=== PATIENT | female | born 1970 | race Caucasian/White ===

== ENCOUNTER 2016-07-24 16:34 | Emergency (ER) | payer SELFPAY ==
[2016-07-24 16:38] VITALS: BP 118/84; PULSE 63; TEMP 98.2; BMI 32.3
[2016-07-24] MEDS ORDERED: IBUPROFEN 600 MG TABLET (FP) PO ONE ×2 (17:40→17:44)
--- NOTE | 2016-07-24 17:42 | PDOC ---
History of Present Illness - General Chief Complaint: Injury Stated Complaint: INJURY Time Seen by Provider: 07/24/16 16:59 History Source: Patient Exam Limitations: No Limitations - History of Present Illness Initial Comments: 07/24/16 18:22 My Chief Complaint: stepped on nail right foot History of Present Illness; patient is a 46 year old male with no significant medical history here today after stepping on a nail rt. foot yesterday work boots on. He reports that area is tender to touch. Patient reports that his tetanus is up-to-date last updated 3 years ago. He reports that he was able to remove the nail from his foot. Patient reports that area is tender to when putting weight on his foot. Patient did not take anything for pain today. He denies any numbness of his right foot. 07/24/16 18:24 07/24/16 18:25 Occurred: reports: yesterday Severity: reports: mild Pain Location: reports: lower extremity (rt. foot) Method of Injury: Yes: other (stepped on a dirt nail at work ) Modifying Factors: improves with: None Loss of Consciousness: no loss of consciousness Associated Symptoms (Fall): other (tenderness rt. lateral heel) Past History - Past Medical History Allergies/Adverse Reactions: Allergies Allergy/AdvReac Type Severity Reaction Status Date / Time No Known Allergies Allergy Verified 07/24/16 16:36 Home Medications: Ambulatory Orders Cephalexin Monohydrate [Keflex -] 500 mg PO Q8H #20 capsule 07/24/16 - Psycho/Social/Smoking Cessation Hx Anxiety: No Suicidal Ideation: No Smoking History: Never smoked Have you smoked in the past 12 months: No Information on smoking cessation initiated: No Hx Alcohol Use: No Drug/Substance Use Hx: No Substance Use Type: None Review of Systems - Review of Systems Able to Perform ROS?: Yes Constitutional: No: Symptoms Reported HEENTM: No: Symptoms Reported Respiratory: No: Symptoms reported Cardiac (ROS): No: Symptoms Reported ABD/GI: No: Symptoms Reported : No: Symptoms Reported Integumentary: Yes: Other (rt. lateral heel puncture wound ) Neurological: No: Symptoms reported *Physical Exam - Vital Signs Last Vital Signs Temp Pulse Resp BP Pulse Ox 98.2 F 63 18 118/84 100 07/24/16 16:36 07/24/16 16:36 07/24/16 16:36 07/24/16 16:36 07/24/16 16:36 - Physical Exam General Appearance: Yes: Appropriately Dressed Vascular Pulses: Dorsalis-Pedis (R): 4+ Extremity: positive: Normal Capillary Refill, Normal Range of Motion (rt. foot ) , Tender (rt. lateral heel), Other (punctate erythematous nellie rt. lateral heel with minimal erythema lateral heel) Integumentary: positive: Other (punctate nellie rt. lateral heel, with surrounding erythema laterally ) Neurologic: positive: Alert, Normal Response Medical Decision Making - Medical Decision Making 07/24/16 18:22 07/24/16 18:26 patient is a 46 year old male with no significant medical history here today after stepping on a nail rt. foot yesterday work boots on. He reports that area is tender to touch. Patient reports that his tetanus is up-to-date last updated 3 years ago. He reports that he was able to remove the nail from his foot. Patient reports that area is tender to when putting weight on his foot. Patient did not take anything for pain today. He denies any numbness of his right foot. Right foot puncture wound PLAN: ibuprofen 600 mg po now keflex 500 mg po now than every 8 hrs for 7 days xray right foot no foreign body noted 07/24/16 18:34 *DC/Admit/Observation/Transfer Diagnosis at time of Disposition: Puncture wound of foot, right Qualifiers: Encounter type: initial encounter Qualified Code(s): S91.331A - Puncture wound without foreign body, right foot, initial encounter - Discharge Dispostion Disposition: HOME Condition at time of disposition: Stable - Prescriptions Prescriptions: Cephalexin Monohydrate [Keflex -] 500 mg PO Q8H #20 capsule
[2016-07-24] MEDS ORDERED: CEPHALEXIN MONOHYDRATE 500 MG CAPSULE (UD) PO ONE (17:47)
[2016-07-24] MEDS ORDERED: CEPHALEXIN MONOHYDRATE 500 MG CAPSULE (UD) ONE (17:57)
== END 2016-07-24 18:53 | disposition home or self-care (01) ==
LOC: JERFT 16:34
DX: S91.331A Puncture wound without foreign body, right foot, initial encounter (principal); W22.8XXA Striking against or struck by other objects, initial encounter; Y99.0 Civilian activity done for income or pay; Y93.89 Activity, other specified; Y92.9 Unspecified place or not applicable
CPT/HCPCS: 73630-TC-RT; 99281-25

== ENCOUNTER 2016-12-01 18:41 | Emergency (ER) | payer SELFPAY ==
[2016-12-01 18:46] VITALS: BP 128/68; PULSE 65; TEMP 98.1; BMI 32.0
--- NOTE | 2016-12-01 19:22 | PDOC ---
History of Present Illness - General Chief Complaint: Injury Stated Complaint: KNEE INJURY Time Seen by Provider: 12/01/16 19:19 History Source: Patient Exam Limitations: No Limitations - History of Present Illness Initial Comments: 12/01/16 20:02 Evaluation of right knee pain. States at work today tripped and fell landing on right knee with a twisting and contusion. Complaints of pain and swelling. Has not taken any medication for pain pain relief, has not provided any therapeutic treatment. Occurred: reports: yesterday Severity: reports: mild, moderate Pain Location: reports: lower extremity (right knee ) Method of Injury: Yes: fall Modifying Factors: improves with: None Associated Symptoms (Fall): denies symptoms Past History - Travel Traveled outside of the country in the last 30 days: No Close contact w/someone who was outside of country & ill: No - Past Medical History Allergies/Adverse Reactions: Allergies Allergy/AdvReac Type Severity Reaction Status Date / Time No Known Allergies Allergy Verified 12/01/16 18:46 Home Medications: Ambulatory Orders NK [No Known Home Medication] 12/01/16 Other medical history: denies - Psycho/Social/Smoking Cessation Hx Anxiety: No Suicidal Ideation: No Smoking History: Never smoked Have you smoked in the past 12 months: No Information on smoking cessation initiated: No Hx Alcohol Use: No Drug/Substance Use Hx: No Substance Use Type: None Review of Systems - Review of Systems Able to Perform ROS?: Yes Is the patient limited Bahraini proficient: Yes Constitutional: Yes: See HPI. No: Symptoms Reported, Fever, Malaise HEENTM: No: Symptoms Reported Respiratory: No: Symptoms reported Musculoskeletal: Yes: Symptoms Reported, See HPI, Joint Pain, Joint Swelling ( right knee ) Integumentary: Yes: Symptoms Reported, See HPI, Bruising Neurological: Yes: See HPI. No: Symptoms reported All Other Systems: Reviewed and Negative *Physical Exam - Vital Signs Last Vital Signs Temp Pulse Resp BP Pulse Ox 98.1 F 65 18 128/68 97 12/01/16 18:44 12/01/16 18:44 12/01/16 18:44 12/01/16 18:44 12/01/16 18:44 - Physical Exam General Appearance: Yes: Nourished, Appropriately Dressed, Apparent Distress, Mild Distress HEENT: positive: MARISA, Normal ENT Inspection, Normal Voice, TMs Normal, Pharynx Normal Neck: positive: Supple. negative: Tender Respiratory/Chest: positive: Lungs Clear, Normal Breath Sounds Musculoskeletal: positive: Decreased Range of Motion. negative: Normal Inspection, Vertebral Tenderness Extremity: positive: Tender, Swelling. negative: Normal Range of Motion (mild tender to inferior sub patella , no crepitus or step-offs, patella is mobile, no reproduced tenderness along the medial or lateral aspect of knee joint, no posterior fossa tenderness. 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 Follow-up with orthopedist as needed. *DC/Admit/Observation/Transfer Diagnosis at time of Disposition: Contusion of right knee and lower leg Qualifiers: Encounter type: initial encounter Qualified Code(s): S80.01XA - Contusion of right knee, initial encounter; S80.11XA - Contusion of right lower leg, initial encounter - Discharge Dispostion Disposition: HOME Condition at time of disposition: Stable Admit: No - Referrals Referrals: Aguilar Varela MD [Staff Physician] - - Patient Instructions Printed Discharge Instructions: DI for Knee Sprain Additional Instructions: Rest, ice to area on and off for 15 minutes 4-6 times a day Avoid heavy lifting or exercise until pain and swelling is resolved or until further directed Keep area highly elevated to reduce swelling Use splints/Parth wrap as directed Followup with orthopedist in one to 2 days if not improving, if significantly improved may wait one week for followup with orthopedist May use ibuprofen 2-200 mg tablets every 6 hours as needed for pain Dr. Aguilar Varela has orthopedic clinic hours for Medicare/Medicaid Orthopedic referral patients Office is located on [facility] ; call for appointment Clinic is open Wednesday mornings from 9 AM to 12 noon and afternoon from to 4pm - Post Discharge Activity Work/School Note: Back to Work
== END 2016-12-01 20:12 | disposition home or self-care (01) ==
LOC: JERFT 18:41
DX: S80.01XA Contusion of right knee, initial encounter (principal); W01.0XXA Fall on same level from slipping, tripping and stumbling without subsequent striking against object, initial encounter; Y93.89 Activity, other specified; Y92.69 Other specified industrial and construction area as the place of occurrence of the external cause; Y99.0 Civilian activity done for income or pay
CPT/HCPCS: 73562-TC-RT; 99281-25

== ENCOUNTER 2018-04-26 15:58 | Emergency (ER) | payer SELFPAY ==
[2018-04-26 16:24] VITALS: BP 121/76; PULSE 76; TEMP 98.4; BMI 32.0
--- NOTE | 2018-04-26 17:03 | PDOC ---
History of Present Illness - General Chief Complaint: Injury Stated Complaint: HEAD INJURY Time Seen by Provider: 04/26/18 16:49 - History of Present Illness Initial Comments: 04/26/18 17:02 48-year-old male presents for evaluation of head trauma. He states he fell 4 feet from a ladder hitting his head. He feels dizzy and nauseous Past History - Past Medical History Allergies/Adverse Reactions: Allergies Allergy/AdvReac Type Severity Reaction Status Date / Time No Known Allergies Allergy Verified 04/26/18 16:20 Home Medications: Ambulatory Orders NK [No Known Home Medication] 12/01/16 COPD: No - Suicide/Smoking/Psychosocial Hx Smoking History: Never smoked Have you smoked in the past 12 months: No Information on smoking cessation initiated: No Hx Alcohol Use: No Drug/Substance Use Hx: No Substance Use Type: None Review of Systems - Review of Systems ABD/GI: Yes: Nausea Neurological: Yes: Headache, Dizziness *Physical Exam - Vital Signs Last Vital Signs Temp Pulse Resp BP Pulse Ox 98.4 F 76 16 121/76 100 04/26/18 16:20 04/26/18 16:20 04/26/18 16:20 04/26/18 16:20 04/26/18 16:20 - Physical Exam Comments: 04/26/18 17:03 HEAD: NC there is about a 3 cm circumferential hematoma on the right parietal scalp on the left occipital scalp there is a scar from a prior craniotomy, patient states he had 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 EYES: Conjuntiva clear EOMI PERRL Ears: Canals and TM's normal NOSE: No d/c THROAT: Moist mucous membrances, oral pharanx clear, uvula midline NECK: Supple without adenopathy CARDIAC: S1 S2 LUNGS: CTA Full and Equal breath sounds ABDOMEN: Soft NT ND MS: Full ROM in all joints without edema NEUROLOGIC: No gross sensory or motor deficits, NVID negative rhomberg SKIN: Normal color and temperature no lesions or rashes 04/26/18 17:03 04/26/18 17:55 Moderate Sedation - Procedure Monitoring Vital Signs: Procedure Monitoring Vital Signs Temperature 98.4 F 04/26/18 16:20 Pulse Rate 76 04/26/18 16:20 Respiratory Rate 16 04/26/18 16:20 Blood Pressure 121/76 04/26/18 16:20 O2 Sat by Pulse Oximetry (%) 100 04/26/18 16:20 ED Treatment Course - RADIOLOGY Radiology Studies Ordered: Category Date Time Status CERVICAL SPINE CT W/O CONTR [CT] Stat CT Scan 04/26/18 16:[address] WITHOUT CONTRAST [CT] Stat CT Scan 04/26/18 16:53 Ordered Medical Decision Making - Medical Decision Making 04/26/18 17:54 neuro surgery called regarding CT results 04/26/18 18:40 Discussed case and CT findings with Dr Barth, who recommends MRI with IV contrast to evaluate ? head bleed 04/26/18 18:42 will transfer to main ER *DC/Admit/Observation/Transfer Diagnosis at time of Disposition: Closed head injury - Referrals - Patient Instructions - Post Discharge Activity
[2018-04-26] MEDS ORDERED: ACETAMINOPHEN 500 MG TABLET (FP) PO ONE (17:29)
[2018-04-26] MEDS ORDERED: ACETAMINOPHEN 500 MG TABLET (FP) ONE (17:32)
[2018-04-26 19:10] LABS: BASO % 0.3 % (0-2.0); HEMATOCRIT 45.5 % (35.4-49); HEMOGLOBIN 15.5 GM/dL (11.7-16.9); LYMPH % 24.2 % (8-40); MCH 30.2 pg (25.7-33.7); MCHC 34.1 g/dl (32.0-35.9); MEAN CELL VOLUME 88.6 fl (80-96); MEAN PLT VOLUME 8.7 fl (7.5-11.1); MONO % 4.9 % (3.8-10.2); NEUT % 69.6 % (42.8-82.8); PLATELET COUNT 241 K/MM3 (134-434); RBC 5.13 M/mm3 (4.00-5.60); RDW 13.2 % (11.9-15.9); WHITE BLOOD COUNT 9.4 K/mm3 (4.0-10.0)
[2018-04-26 19:26] LABS: INR 1.08 (0.83-1.09); PROTHROMBIN TIME (PATIENT) 12.7 SEC (9.7-13.0)
--- NOTE | 2018-04-26 20:02 | PDOC ---
*Physical Exam - Vital Signs Last Vital Signs Temp Pulse Resp BP Pulse Ox 98.4 F 76 16 121/76 100 04/26/18 16:20 04/26/18 16:20 04/26/18 16:20 04/26/18 16:20 04/26/18 16:20 <Thang Tijerina - Last Filed: 04/26/18 22:24> - Vital Signs Last Vital Signs Temp Pulse Resp BP Pulse Ox 98.4 F 76 16 121/76 100 04/26/18 16:20 04/26/18 16:20 04/26/18 16:20 04/26/18 16:20 04/26/18 16:20 <Ria Farrar - Last Filed: 04/27/18 00:58> ED Treatment Course - LABORATORY CBC & Chemistry Diagram: 04/26/18 19:00 04/26/18 19:40 - ADDITIONAL ORDERS Additional order review: Laboratory Results 04/26/18 04/26/18 04/26/18 19:40 19:00 19:00 PT with INR 12.70 INR 1.08 Sodium 139 Cancelled Potassium 4.1 Cancelled Chloride 103 Cancelled Carbon Dioxide 28 Cancelled Anion Gap 9 Cancelled BUN 20 H Cancelled Creatinine 0.9 Cancelled Creat Clearance w eGFR > 60 Cancelled Random Glucose 100 Cancelled Calcium 8.8 Cancelled Total Bilirubin 0.4 Cancelled AST 27 Cancelled ALT 40 Cancelled Alkaline Phosphatase 75 Cancelled Total Protein 7.1 Cancelled Albumin 3.7 Cancelled 04/26/18 19:00 RBC 5.13 MCV 88.6 MCHC 34.1 RDW 13.2 MPV 8.7 Neutrophils % 69.6 Lymphocytes % 24.2 Monocytes % 4.9 Eosinophils % 1.0 Basophils % 0.3 - Medications Given in the ED: ED Medications Discontinued Medications Generic Name Dose Route Start Last Admin Trade Name Freq PRN Reason Stop Dose Admin Acetaminophen 1,000 mg 04/26/18 17:29 04/26/18 17:32 Tylenol - PO 04/26/18 17:30 1,000 mg ONCE ONE Administration <Thang Tijerina - Last Filed: 04/26/18 22:24> - LABORATORY CBC & Chemistry Diagram: 04/26/18 19:00 04/26/18 19:40 - ADDITIONAL ORDERS Additional order review: Laboratory Results 04/26/18 04/26/18 19:00 19:00 PT with INR 12.70 INR 1.08 Sodium Cancelled Potassium Cancelled Chloride Cancelled Carbon Dioxide Cancelled Anion Gap Cancelled BUN Cancelled Creatinine Cancelled Creat Clearance w eGFR Cancelled Random Glucose Cancelled Calcium Cancelled Total Bilirubin Cancelled AST Cancelled ALT Cancelled Alkaline Phosphatase Cancelled Total Protein Cancelled Albumin Cancelled 04/26/18 19:00 RBC 5.13 MCV 88.6 MCHC 34.1 RDW 13.2 MPV 8.7 Neutrophils % 69.6 Lymphocytes % 24.2 Monocytes % 4.9 Eosinophils % 1.0 Basophils % 0.3 - RADIOLOGY Radiology Studies Ordered: Category Date Time Status BRAIN MRI W&W/O CONTRAST [MRI] Stat MRI 04/26/18 18:45 Ordered - Medications Given in the ED: ED Medications Discontinued Medications Generic Name Dose Route Start Last Admin Trade Name Freq PRN Reason Stop Dose Admin Acetaminophen 1,000 mg 04/26/18 17:29 04/26/18 17:32 Tylenol - PO 04/26/18 17:30 1,000 mg ONCE ONE Administration <Ria Farrar - Last Filed: 04/27/18 00:58> Medical Decision Making - Medical Decision Making 04/26/18 22:24 Study Description: MR BRAIN EXAM: BRAIN MRI W/WO CONTRAST Findings: The ventricular system is of normal size shape and configuration. There is a 1.5 cm ring-enhancing lesion right cerebellar hemisphere. There is an approximate 1.9 cm lobulated enhancing lesion right side of the cerebellum with mass effect upon the infra aspect of the fourth ventricle. There are 2 additional smaller enhancing lesions noted left cerebellar hemisphere; measuring 4 and 6 mm in diameter. The ventricular system otherwise is of normal size shape and configuration. No supratentorial enhancing lesions identified. The orbits are unremarkable. The sella and suprasellar cistern are normal in appearance. No evidence of leptomeningeal enhancement. Dural sinuses are patent. No obvious calvarial abnormalities identified. Inferior descent of the cerebellar tonsils approximately 5 mm. No cervicomedullary kinking noted. Impression: 1. Multiple enhancing lesions noted right and left cerebellar hemispheres. Slight mass effect upon the infra aspect of the fourth ventricle without evidence of acute hydrocephalus. Interpreted by: Declan Sosa MD Documentation prepared by Thang Tijerina, acting as medical cash poster for iRa Farrar MD. <Thang Tijerina - Last Filed: 04/26/18 22:24> - Medical Decision Making 04/26/18 23:57 I discussed discussed with a neurosurgeon, Dr. Andrew Barth .He did not want any seizure medication to be prescribed at this time. Patient states that both of his brothers had brain tumors and he was told that his is hereditary. One brother at the age of 50 and his other brother at age 46 He Has not really been experiencing any troubling symptoms at this time.. He denies any headache, visual changes or ataxia. The patient stated that after he had his surgery 5 years ago ,he did not follow -up 04/27/18 00:46 Using a scout sniper it was explained to the pt that he has multiple lesions in his brain and it is critical he follow up with neurosurgery . He was told he may develop seizures, brain bleed,stroke and /or because of the brain tumor. I spoke w neurosurgery at [facility] and discussed 2 options with them, 1)immediate transfer or 2) follow in clinic neurosurgery [phone] The pt stated he would go to the neurosurgical clinic and he was discharged and told if he developed any concerning symptoms to return to the emergency dept <Ria Farrar - Last Filed: 04/27/18 00:58> *DC/Admit/Observation/Transfer <Thang Tijerina - Last Filed: 04/26/18 22:24> <Ria Farrar - Last Filed: 04/27/18 00:58> Diagnosis at time of Disposition: Brain tumor Closed head injury Qualifiers: Encounter type: initial encounter Qualified Code(s): S09.90XA - Unspecified injury of head, initial encounter - Discharge Dispostion Disposition: HOME Condition at time of disposition: Stable - Referrals Referrals: Andrew Barth MD, [facility] [Staff Physician] - - Patient Instructions Printed Discharge Instructions: DI for Brain Tumor and Brain Cancer, DI for Closed Head Injury Additional Instructions: YOUR CT SCAN OF THE HEAD AND THE MRI OF YOUR BRAIN SHOWS BRAIN TUMOR PLEASE GO TO THE NEUROSURGERY CLINIC AT [facility] FOR FURTHER CARE . THE TELEPHONE NUMBER TO THE NEUROSURGERY CLINIC IS [phone] RETURN FOR ANY NEW CONCERNING SYMPTOMS Print Language: SWEDISH
[2018-04-26 20:37] LABS: ALBUMIN 3.7 g/dl (3.4-5.0); ALK PHOS 75 U/L (45-117); ANION GAP 9 MMOL/L (8-16); BILIRUBIN,TOTAL 0.4 mg/dL (0.2-1); BLOOD UREA NITROGEN 20 mg/dL (7-18); CALCIUM 8.8 mg/dL (8.5-10.1); CHLORIDE 103 mmol/L (98-107); CO2 28 mmol/L (21-32); CREATININE 0.9 mg/dL (0.55-1.3); GLUCOSE,RANDOM 100 mg/dL (74-106); POTASSIUM 4.1 mmol/L (3.5-5.1); SGOT/AST 27 U/L (15-37); SGPT/ALT 40 U/L (13-61); SODIUM 139 mmol/L (136-145); TOT PROT 7.1 g/dl (6.4-8.2)
== END 2018-04-27 01:35 | disposition home or self-care (01) ==
LOC: JER 15:58 → EDSEX 15:58 → JER 04-27 01:35
DX: S09.8XXA Other specified injuries of head, initial encounter (principal); D49.6 Neoplasm of unspecified behavior of brain; W11.XXXA Fall on and from ladder, initial encounter; Y93.89 Activity, other specified; Y92.89 Other specified places as the place of occurrence of the external cause; Y99.0 Civilian activity done for income or pay
CPT/HCPCS: 36415; 70450-TC; 70553-TC; 72125-TC; 80053; 85025; 85610; 99282-25